=== PATIENT | male | born 2000 | race African-American/Black ===

== ENCOUNTER 2020-08-29 09:38 | Emergency (ER) | payer SELFPAY ==
--- NOTE | 2020-08-29 10:20 | EDPHYS ---
Physician Documentation [facility] Name: Peewee Preston Jr Age: 20 yrs Sex: Male : 2000 Arrival Date: 08/29/2020 Time: 09:41 Bed DIS5 Private MD: ED Physician Santiago Coker HPI: 08/29 10:18 This 20 yrs old Black Male presents to ER via Ambulatory with complaints of jr8 Vomiting/Diarrhea, Fever. 10:18 The patient presents to the emergency department with nausea, vomiting, diarrhea. jr8 Onset: The symptoms/episode began/occurred acutely, yesterday. Possible causes: sick contacts, by family. The symptoms are aggravated by nothing. The symptoms are alleviated by nothing. Associated signs and symptoms: Pertinent positives: fever. Severity of symptoms: At their worst the symptoms were mild in the emergency department the symptoms have improved. The patient has not experienced similar symptoms in the past. The patient has not recently seen a physician. Historical: - Allergies: 09:51 No Known Allergies; aa5 - PMHx: 09:51 None; aa5 - Immunization history:: Flu vaccine is not up to date. - Social history:: Smoking status: Patient denies any tobacco usage or history of. ROS: 10:18 Eyes: Negative for injury, pain, redness, and discharge, ENT: Negative for injury, jr8 pain, and discharge, Neck: Negative for injury, pain, and swelling, Cardiovascular: Negative for chest pain, palpitations, and edema, Respiratory: Negative for shortness of breath, cough, wheezing, and pleuritic chest pain, Back: Negative for injury and pain, MS/Extremity: Negative for injury and deformity, Skin: Negative for injury, rash, and discoloration, Neuro: Negative for headache, weakness, numbness, tingling, and seizure. 10:18 Constitutional: Positive for fever. 10:18 Abdomen/GI: Positive for nausea, vomiting, and diarrhea, abdominal cramps. Exam: 10:18 Eyes: Pupils equal round and reactive to light, extra-ocular motions intact. Lids and jr8 lashes normal. Conjunctiva and sclera are non-icteric and not injected. Cornea within normal limits. Periorbital areas with no swelling, redness, or edema. ENT: Nares patent. No nasal discharge, no septal abnormalities noted. Tympanic membranes are normal and external auditory canals are clear. Oropharynx with no redness, swelling, or masses, exudates, or evidence of obstruction, uvula midline. Mucous membranes moist. Neck: Trachea midline, no thyromegaly or masses palpated, and no cervical lymphadenopathy. Supple, full range of motion without nuchal rigidity, or vertebral point tenderness. No Meningismus. Cardiovascular: Regular rate and rhythm with a normal S1 and S2. No gallops, murmurs, or rubs. Normal PMI, no JVD. No pulse deficits. Respiratory: Lungs have equal breath sounds bilaterally, clear to auscultation and percussion. No rales, rhonchi or wheezes noted. No increased work of breathing, no retractions or nasal flaring. Abdomen/GI: Soft, non-tender, with normal bowel sounds. No distension or tympany. No guarding or rebound. No evidence of tenderness throughout. Back: No spinal tenderness. No costovertebral tenderness. Full range of motion. Skin: Warm, dry with normal turgor. Normal color with no rashes, no lesions, and no evidence of cellulitis. MS/ Extremity: Pulses equal, no cyanosis. Neurovascular intact. Full, normal range of motion. Neuro: Awake and alert, GCS 15, oriented to person, place, time, and situation. Cranial nerves II-XII grossly intact. Motor strength 5/5 in all extremities. Sensory grossly intact. Cerebellar exam normal. Normal gait. Vital Signs: 09:51 BP 105 / 88; Pulse 84; Resp 16 S; Temp 97.2(TE); Pulse Ox 100% on R/A; aa5 MDM: 10:12 Patient medically screened. jr8 10:18 Data reviewed: vital signs, nurses notes, and as a result, I will discharge patient. jr8 Data interpreted: Pulse oximetry: on room air is 100 %. Interpretation: normal. Counseling: I had a detailed discussion with the patient and/or guardian regarding: the historical points, exam findings, and any diagnostic results supporting the discharge/admit diagnosis, the need for outpatient follow up, a family practitioner, to return to the emergency department if symptoms worsen or persist or if there are any questions or concerns that arise at home. Administered Medications: No medications were administered Disposition: 11:30 Co-signature as Attending Physician, Santiago Coker MD. rn Disposition: 08/29/20 10:20 Discharged to Home. Impression: Acute Gastroenteritis. - Condition is Stable. - Discharge Instructions: Viral Gastroenteritis, Adult. - Prescriptions for Bentyl 20 mg Oral Tablet - take 1 tablet by ORAL route every 6 hours As needed; 20 tablet. Zofran 4 mg Oral Tablet - take 1 tablet by ORAL route every 12 hours As needed; 20 tablet. - Work release form, Medication Reconciliation Form, Thank You Letter, Antibiotic Education, Prescription Opioid Use form. - Follow up: Private Physician; When: As needed; Reason: Recheck today's complaints, Continuance of care, Re-evaluation by your physician. - Problem is new. - Symptoms have improved. Signatures: Santiago Coker MD MD rn Mary Ann Mederos RN RN aa5 Colt Morillo PA PA jr8 Corrections: (The following items were deleted from the chart) 10:50 10:20 08/29/2020 10:20 Discharged to Home. Impression: Acute Gastroenteritis. Condition aa5 is Stable. Forms are Medication Reconciliation Form, Thank You Letter, Antibiotic Education, Prescription Opioid Use. Follow up: Private Physician; When: As needed; Reason: Recheck today's complaints, Continuance of care, Re-evaluation by your physician. Problem is new. Symptoms have improved. jr8
--- NOTE | 2020-08-29 10:20 | ER ---
Nurse's Notes [facility] Name: Peewee Preston Jr Age: 20 yrs Sex: Male : 2000 Arrival Date: 08/29/2020 Time: 09:41 Bed DIS5 Private MD: Diagnosis: Acute Gastroenteritis Presentation: 08/29 09:51 Chief complaint: Patient states: vomiting, diarrhea, subjective fever that began aa5 yesterday. 09:51 Coronavirus screen: diarrhea, vomiting. Ebola Screen: Patient negative for fever aa5 greater than or equal to 101.5 degrees Fahrenheit, and additional compatible Ebola Virus Disease symptoms. Initial Sepsis Screen: Does the patient meet any 2 criteria? No. Patient's initial sepsis screen is negative. Does the patient have a suspected source of infection? Yes:. Risk Assessment: Do you want to hurt yourself or someone else? Patient reports no desire to harm self or others. Onset of symptoms was August 2020. 09:51 Acuity: BENIGNO 5 aa5 09:51 Method Of Arrival: Ambulatory aa5 Historical: - Allergies: 09:51 No Known Allergies; aa5 - PMHx: 09:51 None; aa5 - Immunization history:: Flu vaccine is not up to date. - Social history:: Smoking status: Patient denies any tobacco usage or history of. Screenin:00 Abuse screen: Denies threats or abuse. Nutritional screening: No deficits noted. aa5 Tuberculosis screening: No symptoms or risk factors identified. Fall Risk None identified. Assessment: 09:51 General: Appears comfortable, Behavior is calm, cooperative. Pain: Denies pain. Neuro: aa5 Level of Consciousness is awake, alert, obeys commands, Oriented to person, place, time, situation. Cardiovascular: Patient's skin is warm and dry. Respiratory: Airway is patent Respiratory effort is even, unlabored, Respiratory pattern is regular, symmetrical. GI: Abdomen is round non-distended, Abd is soft and non tender X 4 quads. Reports diarrhea, nausea, vomiting. : No signs and/or symptoms were reported regarding the genitourinary system. EENT: No signs and/or symptoms were reported regarding the EENT system. Derm: Skin is dry, Skin is normal, Skin temperature is warm. Musculoskeletal: Range of motion: intact in all extremities. Vital Signs: 09:51 BP 105 / 88; Pulse 84; Resp 16 S; Temp 97.2(TE); Pulse Ox 100% on R/A; aa5 ED Course: 09:41 Patient arrived in ED. as 09:51 Arm band placed on Patient placed in an exam room, on a stretcher. aa5 09:51 Patient has correct armband on for positive identification. Bed in low position. aa5 09:57 [facility] jr8 09:57 Santiago Coker MD is Attending Physician. jr8 10:02 Triage completed. aa5 10:11 Mary Ann Mederos, RN is Primary Nurse. aa5 10:45 No provider procedures requiring assistance completed. Patient did not have IV access aa5 during this emergency room visit. Administered Medications: No medications were administered Outcome: 10:20 Discharge ordered by . jr8 10:45 Discharged to home ambulatory. aa5 10:45 Condition: stable 10:45 Discharge instructions given to patient, Instructed on discharge instructions, follow up and referral plans. medication usage, Demonstrated understanding of instructions, follow-up care, medications, Prescriptions given X 2. 10:50 Patient left the ED. aa5 Signatures: Almaz Weldon as Mary Ann Mederos, RN RN aa5 Colt Morillo PA PA jr
[2020-08-29 11:02] VITALS: BP 105/88; TEMP 97.2; O2SAT 100
== END 2020-08-29 10:50 | disposition home or self-care (01) ==
LOC: ER 09:38
DX: K52.9 Noninfective gastroenteritis and colitis, unspecified (principal)
CPT/HCPCS: 99282

== ENCOUNTER 2021-03-19 10:26 | Emergency (ER) | payer SELFPAY ==
[2021-03-19 11:31] LABS: Absolute Lymphocytes (CBC) 1.4 K/uL (0.7-4.9); Basophils % 0.3 % (0-1.3); Hematocrit 45.7 % (39.6-49.0); Lymphocytes % 15.2 % (15.3-44.8); MPV 7.6 fL (7.6-11.3); RBC Red Blood Cell Count 5.24 M/uL (4.33-5.43)
[2021-03-19 11:39] LABS: ALT/SGPT 21 U/L (12-78); AST/SGOT 19 U/L (15-37); Albumin 3.5 g/dL (3.4-5.0); Alkaline Phosphatase 50 U/L (45-117); BUN Blood Urea Nitrogen 10 mg/dL (7-18); Bicarbonate 30 mmol/L (21-32); Bilirubin Direct 0.2 mg/dL (0-0.2); Bilirubin Total 0.5 mg/dL (0.2-1.0); Glucose Level 87 mg/dL (74-106); Lipase 69 U/L (73-393); Potassium 3.7 mmol/L (3.5-5.1); Protein, Total 7.2 g/dL (6.4-8.2); Sodium Level 142 mmol/L (136-145)
--- NOTE | 2021-03-19 12:00 | ER ---
Nurse's Notes [facility] Name: Peewee Preston Jr Age: 20 yrs Sex: Male : 2000 Arrival Date: 03/19/2021 Time: 10:29 Bed 5 Private MD: Diagnosis: Abdominal pain, Generalized;Localized edema-Lower lip Presentation: 03/19 10:49 Chief complaint: Patient states: RUQ and RLQ pain x2 days, states sharp pain. Denies vg1 NVD. States last BM was yesterday but hard and denies any urinary symptoms. Also states lower bottom lip swelling. Coronavirus screen: Vaccine status: Patient reports being unvaccinated. Client denies travel out of the [place] in the last 14 days. Ebola Screen: Patient negative for fever greater than or equal to 101.5 degrees Fahrenheit, and additional compatible Ebola Virus Disease symptoms. Initial Sepsis Screen: Does the patient meet any 2 criteria? No. Patient's initial sepsis screen is negative. Does the patient have a suspected source of infection? No. Patient's initial sepsis screen is negative. Risk Assessment: Do you want to hurt yourself or someone else? Patient reports no desire to harm self or others. Onset of symptoms was March 17, 2021. 10:49 Method Of Arrival: Ambulatory vg1 10:49 Acuity: BENIGNO 3 vg1 Triage Assessment: 10:51 General: Appears in no apparent distress. uncomfortable, Behavior is calm, cooperative. vg1 Pain: Complains of pain in right upper quadrant and right lower quadrant Pain currently is 7 out of 10 on a pain scale. GI: Abdomen is flat, Last BM was March 18, 2021. Patient currently denies diarrhea, nausea, vomiting. Historical: - Allergies: 10:51 No Known Allergies; vg1 - Home Meds: 10:51 None [Active]; vg1 - PMHx: 10:51 None; vg1 - PSHx: 10:51 None; vg1 - Immunization history:: Adult Immunizations unknown, Client reports having NOT received the Covid vaccine. - Social history:: Smoking status: Patient denies any tobacco usage or history of. Screenin:23 Abuse screen: Denies threats or abuse. Nutritional screening: No deficits noted. jh6 Tuberculosis screening: No symptoms or risk factors identified. Fall Risk None identified. Assessment: 11:19 General: Appears in no apparent distress. comfortable, slender, well groomed, well jh6 developed, well nourished. Pain: Complains of pain in right upper quadrant and right lower quadrant Pain does not radiate. Pain currently is 3 out of 10 on a pain scale. at worst was 6 out of 10 on a pain scale. level that patient reports is acceptable is 0 out of 10 on a pain scale. Quality of pain is described as sharp, shooting, Pain began 2-3 days ago. Is intermittent, Alleviated by nothing. Aggravated by increased activity. GI: Bowel sounds present X 4 quads. Abd is soft Abdomen is tender to palpation in right upper quadrant and right lower quadrant Reports lower abdominal pain. 12:30 Reassessment: Patient and/or family updated on plan of care and expected duration. Pain jh6 level reassessed. Patient denies pain at this time. 13:40 Reassessment: No changes from previously documented assessment. [facility] Vital Signs: 10:49 BP 124 / 71; Pulse 80; Resp 14; Temp 98.7; Pulse Ox 100% ; Weight 56.7 kg; Height 5 ft. vg1 6 in. (167.64 cm); Pain 7/10; 11:24 BP 112 / 60; Pulse 67; Resp 17; Pulse Ox 99% on R/A; jh6 12:30 BP 122 / 64; Pulse 70; Resp 16; Pulse Ox 97% on R/A; jh6 13:37 BP 118 / 64; Pulse 62; Resp 18; Temp 98.4(O); Pulse Ox 99% ; jh6 10:49 Body Mass Index 20.18 (56.70 kg, 167.64 cm) 1 ED Course: 10:29 Patient arrived in ED. mr 10:50 Patient has correct armband on for positive identification. Bed in low position. Call [facility] light in reach. Side rails up X 1. 10:51 Triage completed. vg1 10:51 Arm band placed on. vg1 10:57 Mayra Howard is Primary Nurse. jh6 11:04 Colt Morillo PA is PHCP. jr8 11:04 Yumiko Remy MD is Attending Physician. jr8 11:15 Initial lab(s) drawn, by me, sent to lab. jh6 11:22 No provider procedures requiring assistance completed. Inserted saline lock: 20 gauge jh6 in right antecubital area, using aseptic technique. 11:23 Pulse ox on. NIBP on. Door closed. Noise minimized. Lights dimmed. 6 13:39 IV discontinued, intact, bleeding controlled, No redness/swelling at site. Pressure jh6 dressing applied. Administered Medications: No medications were administered Outcome: 11:59 Discharge ordered by . jericho 13:40 Discharged to home ambulatory. 6 13:40 Condition: improved 13:40 Discharge instructions given to patient, Instructed on discharge instructions, medication usage, Demonstrated understanding of instructions, medications, Prescriptions given X 1. 13:42 Patient left the ED. 6 Signatures: Elena Coombs Josh, PA PA jr8 Dennise Cleveland, RN RN vg1 Mayra Howard, RN RN jh6 Corrections: (The following items were deleted from the chart) 10:52 10:51 Home Meds: Unable to obtain; vg1 vg1
--- NOTE | 2021-03-19 12:00 | EDPHYS ---
Physician Documentation [facility] Name: Peewee Preston Jr Age: 20 yrs Sex: Male : 2000 Arrival Date: 03/19/2021 Time: 10:29 Bed 5 Private MD: ED Physician Yumiko Remy HPI: 03/19 11:54 This 20 yrs old Black Male presents to ER via Ambulatory with complaints of Abdominal jr8 Pain, Mouth Swelling. 11:54 Severity of pain: At its worst the pain was mild in the emergency department the pain jr8 is unchanged. The patient has not experienced similar symptoms in the past. The patient has not recently seen a physician. This is a 20-year-old male patient that presented to the emergency room with complaints of lower lip swelling that started yesterday. Denies trauma or new medications or supplements. Patient stated that he is also had persistent lower to mid abdominal pain has been going on for some time that will be intermittent in nature. Currently without abdominal pain or any other signs and symptoms such as nausea, vomiting, diarrhea.. Historical: - Allergies: 10:51 No Known Allergies; vg1 - Home Meds: 10:51 None [Active]; vg1 - PMHx: 10:51 None; vg1 - PSHx: 10:51 None; vg1 - Immunization history:: Adult Immunizations unknown, Client reports having NOT received the Covid vaccine. - Social history:: Smoking status: Patient denies any tobacco usage or history of. ROS: 11:54 Eyes: Negative for injury, pain, redness, and discharge, Neck: Negative for injury, jr8 pain, and swelling, Cardiovascular: Negative for chest pain, palpitations, and edema, Respiratory: Negative for shortness of breath, cough, wheezing, and pleuritic chest pain, Back: Negative for injury and pain, MS/Extremity: Negative for injury and deformity, Skin: Negative for injury, rash, and discoloration, Neuro: Negative for headache, weakness, numbness, tingling, and seizure. 11:54 ENT: Positive for Lip swelling. 11:54 Abdomen/GI: Positive for abdominal pain, Negative for nausea, vomiting, and diarrhea. Exam: 11:54 Constitutional: This is a well developed, well nourished patient who is awake, alert, jr8 and in no acute distress. Head/Face: Normocephalic, atraumatic. Eyes: Pupils equal round and reactive to light, extra-ocular motions intact. Lids and lashes normal. Conjunctiva and sclera are non-icteric and not injected. Cornea within normal limits. Periorbital areas with no swelling, redness, or edema. Neck: Trachea midline, no thyromegaly or masses palpated, and no cervical lymphadenopathy. Supple, full range of motion without nuchal rigidity, or vertebral point tenderness. No Meningismus. Cardiovascular: Regular rate and rhythm with a normal S1 and S2. No gallops, murmurs, or rubs. Normal PMI, no JVD. No pulse deficits. Respiratory: Lungs have equal breath sounds bilaterally, clear to auscultation and percussion. No rales, rhonchi or wheezes noted. No increased work of breathing, no retractions or nasal flaring. Abdomen/GI: Soft, non-tender, with normal bowel sounds. No distension or tympany. No guarding or rebound. No evidence of tenderness throughout. Back: No spinal tenderness. No costovertebral tenderness. Full range of motion. Skin: Warm, dry with normal turgor. Normal color with no rashes, no lesions, and no evidence of cellulitis. MS/ Extremity: Pulses equal, no cyanosis. Neurovascular intact. Full, normal range of motion. Neuro: Awake and alert, GCS 15, oriented to person, place, time, and situation. Cranial nerves II-XII grossly intact. Motor strength 5/5 in all extremities. Sensory grossly intact. Cerebellar exam normal. Normal gait. 11:54 ENT: Exam is negative for earache, ear discharge, TM abnormalities, nasal discharge, sinus tenderness, enlarged tonsils, pharyngitis, Mouth: Lips: moist, Mild edema to the lower lip noted. No mucositis or other lesions noted to the inner mouth or lips., Posterior pharynx: Airway: patent, Tonsils: are normal in appearance, Uvula: midline. Vital Signs: 10:49 BP 124 / 71; Pulse 80; Resp 14; Temp 98.7; Pulse Ox 100% ; Weight 56.7 kg; Height 5 ft. vg1 6 in. (167.64 cm); Pain 7/10; 11:24 BP 112 / 60; Pulse 67; Resp 17; Pulse Ox 99% on R/A; 6 12:30 BP 122 / 64; Pulse 70; Resp 16; Pulse Ox 97% on R/A; 6 13:37 BP 118 / 64; Pulse 62; Resp 18; Temp 98.4(O); Pulse Ox 99% ; jh6 10:49 Body Mass Index 20.18 (56.70 kg, 167.64 cm) vg1 MDM: 11:04 Patient medically screened. [facility] 11:54 Data reviewed: vital signs, nurses notes, lab test result(s), and as a result, I will jr8 discharge patient. Data interpreted: Pulse oximetry: on room air is 99 %. Interpretation: normal. Counseling: I had a detailed discussion with the patient and/or guardian regarding: the historical points, exam findings, and any diagnostic results supporting the discharge/admit diagnosis, lab results, the need for outpatient follow up, a family practitioner, a tube [employer] airplane, to return to the emergency department if symptoms worsen or persist or if there are any questions or concerns that arise at home. ED course: Patient currently hemodynamically stable and afebrile. No abdominal tenderness upon examination. Labs unremarkable. Patient did have lower lip swelling noted but without any other signs or symptoms. Will put patient on steroids and have him closely monitor to ensure that it is not turning to angioedema for whatever reason. Still cannot identify source or cause for the lower lip swelling. Patient understands that he needs to closely observe this and come back immediately if he were to worsen at any point time. Patient will also follow-up with PCP for intermittent abdominal pain.. 03/19 11:05 Order name: Basic Metabolic Panel; Complete Time: 8 03/19 11:05 Order name: CBC with Diff; Complete Time: 8 03/19 11:05 Order name: Hepatic Function; Complete Time: 8 03/19 11:05 Order name: Lipase; Complete Time: 8 03/19 11:05 Order name: IV Saline Lock; Complete Time: 11:8 03/19 11:05 Order name: Labs collected and sent; Complete Time: : Administered Medications: No medications were administered Disposition Summary: 03/19/21 11:59 Discharge Ordered Location: Home [facility] Problem: new jr8 Symptoms: have improved jr8 Condition: Stable jr8 Diagnosis - Abdominal pain, Generalized jr8 - Localized edema - Lower lip jr8 Followup: jr8 - With: Private Physician - When: 2 - 3 days - Reason: Recheck today's complaints, Continuance of care, Re-evaluation by your physician Discharge Instructions: - Discharge Summary Sheet jr8 - Abdominal Pain, Adult jr8 - Edema jr8 - Angioedema jr8 Forms: - Medication Reconciliation Form jr8 - Thank You Letter jr8 - Antibiotic Education jr8 - Prescription Opioid Use jr8 - Work release form jh6 Prescriptions: - Prednisone 20 mg Oral Tablet - take 1 tablet by ORAL route once daily for 5 days; 5 tablet; Refills: 0, jr8 Product Selection Permitted Addendum: 03/24/2021 05:29 Co-signature as Attending Physician, Yumiko Remy MD PA/HISTOLOGIC TECHNICIAN's history reviewed, m a2 patient interviewed, and examined. I agree with assessment and care plan and confirm the diagnosis (es) above. Signatures: Dispatcher [employer] EDMS Colt Morillo PA PA jr8 Yumiko Remy MD MD ma2 Dennise Cleveland RN RN vg1 Corrections: (The following items were deleted from the chart) 03/19 10:52 10:51 Home Meds: Unable to obtain; vg1 vg1
[2021-03-19 14:27] VITALS: BP 118/64; TEMP 98.4; O2SAT 99
== END 2021-03-19 13:42 | disposition home or self-care (01) ==
LOC: ER 10:26
DX: R10.84 Generalized abdominal pain (principal); R60.9 Edema, unspecified
CPT/HCPCS: 36415; 80048; 80076; 83690; 85025; 99284

== ENCOUNTER 2021-09-11 17:33 | Emergency (ER) | payer SELFPAY ==
[2021-09-11] MEDS ORDERED: AZITHROMYCIN 250 MG TAB ONE (18:02)
[2021-09-11] MEDS ORDERED: CEFTRIAXONE 500 MG/VIAL ONE (18:02)
[2021-09-11] MEDS ORDERED: LIDOCAINE 1% MPF 5 ML VIAL ONE (18:02)
[2021-09-11 18:10] LABS: Urine Blood Trace-intact (Negative); Urine Glucose Negative (Negative); Urine Protein Negative (Negative); Urine Specific Gravity >=1.030 (1.005-1.030); Urine pH 6.5 (5.0-7.0)
--- NOTE | 2021-09-11 18:14 | ER ---
Nurse's Notes [facility] Name: Peewee Preston Jr Age: 21 yrs Sex: Male : 2000 Arrival Date: 09/11/2021 Time: 17:35 Bed 11 Private MD: Diagnosis: Unspecified sexually transmitted disease Presentation: 09/11 17:54 Chief complaint: Patient states: penile discharge since yesterday. Coronavirus screen: iw At this time, the client does not indicate any symptoms associated with coronavirus-19. Ebola Screen: Patient negative for fever greater than or equal to 101.5 degrees Fahrenheit, and additional compatible Ebola Virus Disease symptoms Patient denies exposure to infectious person. Patient denies travel to an Ebola-affected area in the 21 days before illness onset. No symptoms or risks identified at this time. Initial Sepsis Screen: Does the patient meet any 2 criteria? No. Patient's initial sepsis screen is negative. Does the patient have a suspected source of infection? No. Patient's initial sepsis screen is negative. Risk Assessment: Do you want to hurt yourself or someone else? Patient reports no desire to harm self or others. Onset of symptoms was September 10, 2021. 17:54 Method Of Arrival: Ambulatory iw 17:54 Acuity: BENIGNO 4 iw Historical: - Allergies: 17:55 No Known Allergies; iw - Home Meds: 17:55 None [Active]; iw - PMHx: 17:55 None; iw Vital Signs: 17:54 BP 128 / 89; Pulse 64; Resp 16; Temp 98.0; Pulse Ox 100% on R/A; iw ED Course: 17:35 Patient arrived in ED. am2 17:41 Mayra Martin FNP [facility]. jh7 17:41 Rl Waite MD is Attending Physician. 7 17:54 Zoya Talley, RN is Primary Nurse. iw 17:55 Triage completed. iw 17:55 Arm band placed on. iw Administered Medications: 18:08 Drug: Rocephin (cefTRIAXone) 500 mg Route: IM; Site: left deltoid; iw 18:08 Drug: AZITHromycin 1 grams Route: PO; iw Outcome: 18:14 Discharge ordered by . [facility] 18:32 Patient left the ED. iw Signatures: Mayank, ZoyaBRANDY paz RN, Amanda am2 Mayra Martin, BAGGER MEAT BAGGER MEAT jh7 Corrections: (The following items were deleted from the chart) 17:55 17:55 Allergies: Aspirin; brenna ceja
--- NOTE | 2021-09-11 18:15 | EDPHYS ---
Physician Documentation [facility] Name: Peewee Preston Jr Age: 21 yrs Sex: Male : 2000 Arrival Date: 09/11/2021 Time: 17:35 Bed 11 Private MD: AYSE Physician Rl Waite HPI: 09/11 19:02 This 21 yrs old Black Male presents to ER via Ambulatory with complaints of Penile jh7 Discharge. 19:02 The patient presents with a known STD exposure, symptoms include yellow penile jh7 discharge. Onset: The symptoms/episode began/occurred yesterday. Patient reports exposure to an STD 4 days ago. Reports milky white penile discharge since yesterday with mild dysuria.. Historical: - Allergies: 17:55 No Known Allergies; iw - Home Meds: 17:55 None [Active]; iw - PMHx: 17:55 None; iw ROS: 19:02 Constitutional: Negative for fever, chills, and weight loss, Cardiovascular: Negative jh7 for chest pain, palpitations, and edema, Respiratory: Negative for shortness of breath, cough, wheezing, and pleuritic chest pain, Skin: Negative for injury, rash, and discoloration, Neuro: Negative for headache, weakness, numbness, tingling, and seizure. 19:02 : Positive for burning with urination, penile discharge, Negative for injury or acute deformity, flank pain, difficulty urinating, penile pain, testicular pain Exam: 19:02 Constitutional: This is a well developed, well nourished patient who is awake, alert, jh7 and in no acute distress. Cardiovascular: Regular rate and rhythm with a normal S1 and S2. No gallops, murmurs, or rubs. Normal PMI, no JVD. No pulse deficits. Respiratory: Lungs have equal breath sounds bilaterally, clear to auscultation and percussion. No rales, rhonchi or wheezes noted. No increased work of breathing, no retractions or nasal flaring. Abdomen/GI: Soft, non-tender, with normal bowel sounds. No distension or tympany. No guarding or rebound. No evidence of tenderness throughout. Male : Normal genitalia with no discharge or lesions. Skin: Warm, dry with normal turgor. Normal color with no rashes, no lesions, and no evidence of cellulitis. Vital Signs: 17:54 BP 128 / 89; Pulse 64; Resp 16; Temp 98.0; Pulse Ox 100% on R/A; iw MDM: 17:43 Patient medically screened. [facility] 18:10 ED course: Patient was stable throughout the ER visit. He was treated for gonorrhea and jh7 chlamydia in the ER. He will follow-up with his PCP for additional lab work if needed. He was advised to abstain from sexual activity for the next 7 days. He will return to the ER if he experiences any new concerning symptoms. The patient understands the plan of care.. 18:10 Differential diagnosis: urethritis, STD. Data reviewed: vital signs, nurses notes. Data [facility] interpreted: Pulse oximetry: is 100 %. Interpretation: normal. Counseling: I had a detailed discussion with the patient and/or guardian regarding: the historical points, exam findings, and any diagnostic results supporting the discharge/admit diagnosis. 09/11 18:10 Order name: Urine Dipstick-Ancillary; Complete Time: 19:07 EDMS Administered Medications: 18:08 Drug: Rocephin (cefTRIAXone) 500 mg Route: IM; Site: left deltoid; iw 18:08 Drug: AZITHromycin 1 grams Route: PO; Disposition Summary: 09/11/21 18:14 Discharge Ordered Location: Home [facility] Problem: new [facility] Symptoms: are unchanged [facility] Condition: Stable [facility] Diagnosis - Unspecified sexually transmitted disease [facility] Followup: [facility] - With: Private Physician - When: 2 - 3 days - Reason: Recheck today's complaints Discharge Instructions: - Discharge Summary Sheet [facility] - Safe Sex [facility] - Preventing Sexually Transmitted Infections, Adult [facility] Forms: - Medication Reconciliation Form [facility] - Thank You Letter [facility] Signatures: Zoya Talley, RN RN iw Mayra Martin FNP FNP [facility] Corrections: (The following items were deleted from the chart) 17:55 17:55 Allergies: Aspirin; [facility] 19:09 19:02 ED course: Patient was stable throughout the ER visit. He was treated for jh7 gonorrhea and chlamydia in the ER. He will follow-up with his PCP for additional lab work if needed. He was advised to abstain from sexual activity for the next 7 days. He will return to the ER if he experiences any new concerning symptoms. The patient understands the plan of care.. jh7
[2021-09-11 18:59] VITALS: BP 128/89; TEMP 98; O2SAT 100
== END 2021-09-11 18:32 | disposition home or self-care (01) ==
LOC: ER 17:33
DX: A64 Unspecified sexually transmitted disease (principal)
CPT/HCPCS: 81003; 96372; 99282; J0696

== ENCOUNTER 2021-12-19 12:49 | Emergency (ER) | payer SELFPAY ==
--- NOTE | 2021-12-19 15:17 | ER ---
Nurse's Notes [facility] Name: Peewee Preston Jr Age: 21 yrs Sex: Male : 2000 Arrival Date: 12/19/2021 Time: 12:51 Bed 11 Private MD: Diagnosis: SARS-associated coronavirus as the cause of diseases classified elsewhere Presentation: 12/19 13:26 Chief complaint: Patient states: Runny nose, cough, fore throat x 2 days, denies fever. jl7 Coronavirus screen: Vaccine status: Patient reports receiving the 2nd dose of the covid vaccine. cough unrelated to allergies, runny nose, Client presents with at least one sign or symptom that may indicate coronavirus-19. Standard/surgical mask placed on the client. Ebola Screen: No symptoms or risks identified at this time. Initial Sepsis Screen: Does the patient meet any 2 criteria? No. Patient's initial sepsis screen is negative. Does the patient have a suspected source of infection? No. Patient's initial sepsis screen is negative. Risk Assessment: Do you want to hurt yourself or someone else? Patient reports no desire to harm self or others. Onset of symptoms was December 17, 2021. 13:26 Method Of Arrival: Ambulatory [facility] 13:26 Acuity: BENIGNO 4 jl7 Triage Assessment: 13:28 General: Appears in no apparent distress. uncomfortable, Behavior is calm, cooperative, jl7 appropriate for age. Pain: Denies pain. Historical: - Allergies: 13:28 No Known Allergies; jl7 - Home Meds: 13:28 None [Active]; jl7 - PMHx: 13:28 None; jl7 - PSHx: 13:28 None; jl7 - Immunization history:: Client reports receiving the 2nd dose of the Covid vaccine. - Social history:: Smoking status: Patient denies any tobacco usage or history of. Screenin:41 Abuse screen: Denies threats or abuse. Denies injuries from another. Nutritional ss screening: No deficits noted. Tuberculosis screening: Never had TB. Fall Risk None identified. Assessment: 13:29 Reassessment: ERP in triage assessing pt and discussing POC. jl7 15:41 Reassessment: Patient appears in no apparent distress at this time. Patient and/or ss family updated on plan of care and expected duration. Pain level reassessed. Patient is alert, oriented x 3, equal unlabored respirations, skin warm/dry/pink. Vital Signs: 13:26 BP 121 / 83; Pulse 58; Resp 17; Pulse Ox 100% ; Weight 56.7 kg; Height 5 ft. 7 in. jl7 (170.18 cm); Pain 0/10; 13:26 Body Mass Index 19.58 (56.70 kg, 170.18 cm) 7 ED Course: 12:51 Patient arrived in ED. mr 13:16 Rl White PA is PHCP. cp 13:16 Dariusz Flowers MD is Attending Physician. cp 13:28 Triage completed. 7 13:28 Arm band placed on right wrist. [facility] 13:29 COVID swab sent to lab. Flu and/or RSV swab sent to lab. Strep swab sent to lab. [facility] 13:55 COVID-19 SARS RT PCR (Document "Date of Onset" if Symptomatic) Sent. [facility] 13:55 Strep Sent. [facility] 13:55 Influenza Screen (a \\T\\ B) Sent. [facility] 15:41 Pat Riley, RN is Primary Nurse. ss 15:41 Patient has correct armband on for positive identification. Bed in low position. Call ss light in reach. 15:41 No provider procedures requiring assistance completed. Patient did not have IV access ss during this emergency room visit. Administered Medications: No medications were administered Medication: 15:41 VIS not applicable for this client. ss Outcome: 15:16 Discharge ordered by MD. cp 15:41 Discharged to home ambulatory. ss 15:41 Condition: good 15:41 Discharge instructions given to patient, Instructed on discharge instructions, follow up and referral plans. medication usage, Demonstrated understanding of instructions, follow-up care, medications, Prescriptions given X 2. 15:42 Patient left the ED. ss Signatures: Elena Coobms mr Pat Riley, RN RN ss Rl White PA PA cp Leal, Jahala, RN RN 7 Fide Bran RN RN 5 Corrections: (The following items were deleted from the chart) : 13:28 Home Meds: Unable to obtain; [place] [id number]
--- NOTE | 2021-12-19 15:17 | EDPHYS ---
Physician Documentation [facility] Name: Peewee Preston Jr Age: 21 yrs Sex: Male : 2000 Arrival Date: 12/19/2021 Time: 12:51 Bed 11 Private MD: ED Physician Dariusz Flowers HPI: 12/19 13:28 This 21 yrs old Black Male presents to ER via Ambulatory with complaints of Runny Nose, cp Cough. 13:28 The patient or guardian reports cough, that is intermittent, with no sputum. Onset: The cp symptoms/episode began/occurred 2 day(s) ago. Associated signs and symptoms: Pertinent positives: sore throat, Pertinent negatives: diarrhea, ear ache, fever, vomiting. Historical: - Allergies: 13:28 No Known Allergies; jl7 - Home Meds: 13:28 None [Active]; jl7 - PMHx: 13:28 None; jl7 - PSHx: 13:28 None; jl7 - Immunization history:: Client reports receiving the 2nd dose of the Covid vaccine. - Social history:: Smoking status: Patient denies any tobacco usage or history of. ROS: 13:35 Eyes: Negative for injury, pain, redness, and discharge. cp 13:35 Constitutional: Negative for body aches, chills, fever, poor PO intake. 13:35 ENT: Positive for rhinorrhea, sore throat, Negative for drainage from ear(s), ear pain, difficulty swallowing, difficulty handling secretions. 13:35 Respiratory: Positive for cough, with no reported sputum, Negative for shortness of breath, wheezing. 13:35 Abdomen/GI: Negative for vomiting, diarrhea, constipation. 13:35 Neuro: Negative for headache. Exam: 13:40 Constitutional: The patient appears in no acute distress, alert, awake, non-toxic, well cp developed, well nourished. 13:40 Head/Face: Normocephalic, atraumatic. cp 13:40 Eyes: Periorbital structures: appear normal, Conjunctiva: normal, no exudate, no injection, Lids and lashes: appear normal, bilaterally. 13:40 ENT: External ear(s): are unremarkable, Nose: is normal, Mouth: Lips: moist, Oral mucosa: pink and intact, moist, Posterior pharynx: Airway: no evidence of obstruction, patent, Tonsils: with erythema, no enlargement, no exudate, Uvula: midline, erythema, that is moderate, exudate, is not appreciated. 13:40 Neck: ROM/movement: is normal, is supple, without pain, no range of motions limitations, no meningismus. 13:40 Chest/axilla: Inspection: normal. 13:40 Cardiovascular: Rate: bradycardic, Rhythm: regular. 13:40 Respiratory: the patient does not display signs of respiratory distress, Respirations: normal, no use of accessory muscles, no retractions, labored breathing, is not present, Breath sounds: decreased breath sounds, are not appreciated, stridor, is not appreciated, + upper airway congestion. wheezing: is not appreciated. 13:40 Abdomen/GI: Exam negative for discomfort, distension, guarding, Inspection: abdomen appears normal. Vital Signs: 13:26 BP 121 / 83; Pulse 58; Resp 17; Pulse Ox 100% ; Weight 56.7 kg; Height 5 ft. 7 in. jl7 (170.18 cm); Pain 0/10; 13:26 Body Mass Index 19.58 (56.70 kg, 170.18 cm) jl7 MDM: 13:54 Patient medically screened. cp 14:00 Differential Diagnosis: Bronchitis Influenza Sinusitis Pharyngitis Otitis Media Viral cp Syndrome Pneumonia Other strep throat. 15:15 Data reviewed: vital signs, nurses notes, lab test result(s). cp 15:15 Counseling: I had a detailed discussion with the patient and/or guardian regarding: the cp historical points, exam findings, and any diagnostic results supporting the discharge/admit diagnosis, lab results, to return to the emergency department if symptoms worsen or persist or if there are any questions or concerns that arise at home. ED course: VSS. Patient appears non-toxic and no signs of respiratory distress. Will discharge to home for continued monitoring. 12/19 13:29 Order name: COVID-19 SARS RT PCR (Document "Date of Onset" if Symptomatic); Complete cp Time: 14:43 12/19 14:43 Interpretation: Reviewed. cp 12/19 13:29 Order name: Strep; Complete Time: 14:43 cp 12/19 13:29 Order name: Influenza Screen (a \\T\\ B); Complete Time: 14:43 cp 12/19 14:15 Order name: Throat Culture EDPA Administered Medications: No medications were administered Disposition: 16:45 Attestation: The patient's history, exam findings, diagnostics, and a summary of any [facility] interventions or procedures was reviewed in detail with Rl ALLEN. Disposition Summary: 12/19/21 15:16 Discharge Ordered Location: Home cp Problem: new cp Symptoms: are unchanged cp Condition: Stable cp Diagnosis - SARS-associated coronavirus as the cause of diseases classified elsewhere cp Followup: cp - With: Private Physician - When: 2 - 3 days - Reason: Worsening of condition Discharge Instructions: - Discharge Summary Sheet cp - COVID-19 cp - Things to Know about the COVID-19 Pandemic - [facility] cp - 10 Things You Can Do to Manage Your COVID-19 Symptoms at Home - [facility] cp - COVID-19: Quarantine vs. Isolation - [facility] cp - Prevent the Spread of COVID-19 if You Are Sick - [facility] cp Forms: - Medication Reconciliation Form cp - Thank You Letter cp - Antibiotic Education cp - Prescription Opioid Use cp - Work release form eb Prescriptions: - Ibuprofen 600 mg Oral Tablet - take 1 tablet by ORAL route every 8 hours As needed take with food; 30 tablet; cp Refills: 0, Product Selection Permitted - Tessalon Perles 100 mg Oral Capsule - take 1 capsule by ORAL route every 8 hours As needed; 15 capsule; Refills: 0, cp Product Selection Permitted Signatures: Dispatcher [employer] EDPA Rl White PA PA cp Emmanuel Quintero RN RN jlDariusz Butler MD MD [id number] Corrections: (The following items were deleted from the chart) 13:29 13:28 Home Meds: Unable to obtain; [facility]
[2021-12-19 15:59] VITALS: BP 121/83; O2SAT 100
== END 2021-12-19 15:42 | disposition home or self-care (01) ==
LOC: ER 12:49
DX: U07.1 COVID-19 (principal)
CPT/HCPCS: 87070; 87081; 87804; 99283; U0003

== ENCOUNTER 2022-01-26 11:01 | Emergency (ER) | payer SELFPAY ==
[2022-01-26 13:30] LABS: Absolute Lymphocytes (CBC) 1.7 K/uL (0.7-4.9); Hematocrit 46.7 % (39.6-49.0); Lymphocytes % 20.5 % (15.3-44.8); MCV 85.2 fL (80-100); MPV 8.5 fL (7.6-11.3); RBC Red Blood Cell Count 5.48 M/uL (4.33-5.43)
[2022-01-26 14:02] LABS: Albumin 4.3 g/dL (3.4-5.0); Bilirubin Total 0.7 mg/dL (0.2-1.0); Protein, Total 8.6 g/dL (6.4-8.2)
[2022-01-26 14:04] LABS: Potassium 3.9 mmol/L (3.5-5.1)
--- NOTE | 2022-01-26 14:33 | EDPHYS ---
Physician Documentation [facility] Name: Peewee Preston Jr Age: 21 yrs Sex: Male : 2000 Arrival Date: 01/26/2022 Time: 11:04 Bed 26 Private MD: ED Physician Mirtha Layton HPI: 01/26 11:40 This 21 yrs old Black Male presents to ER via Ambulatory with complaints of Abdominal jh7 Pain, Headache. 11:40 The patient presents with abdominal pain in the periumbilical area. Onset: The jh7 symptoms/episode began/occurred 2 day(s) ago. Associated signs and symptoms: Pertinent positives: headache, nausea, Pertinent negatives: constipation, diarrhea, dysuria, fever, vomiting. The symptoms are described as dull. Historical: - Allergies: 11:38 No Known Allergies; ph - PMHx: 11:38 None; ph - Immunization history:: Adult Immunizations unknown. - Social history:: Smoking status: Patient denies any tobacco usage or history of. ROS: 11:40 Constitutional: Negative for fever, chills, and weight loss, ENT: Negative for injury, jh7 pain, and discharge, Neck: Negative for injury, pain, and swelling, Cardiovascular: Negative for chest pain, palpitations, and edema, Respiratory: Negative for shortness of breath, cough, wheezing, and pleuritic chest pain, Back: Negative for injury and pain, MS/Extremity: Negative for injury and deformity, Skin: Negative for injury, rash, and discoloration. 11:40 Abdomen/GI: Positive for abdominal pain, nausea, Negative for vomiting, diarrhea, constipation, rectal bleeding. 11:40 Neuro: Positive for headache, Negative for altered mental status, dizziness, syncope, weakness. 11:40 All other systems are negative. Exam: 11:40 Constitutional: This is a well developed, well nourished patient who is awake, alert, jh7 and in no acute distress. Head/Face: Normocephalic, atraumatic. ENT: Nares patent. No nasal discharge, no septal abnormalities noted. Tympanic membranes are normal and external auditory canals are clear. Oropharynx with no redness, swelling, or masses, exudates, or evidence of obstruction, uvula midline. Mucous membranes moist. Cardiovascular: Regular rate and rhythm with a normal S1 and S2. No gallops, murmurs, or rubs. Normal PMI, no JVD. No pulse deficits. Respiratory: Lungs have equal breath sounds bilaterally, clear to auscultation and percussion. No rales, rhonchi or wheezes noted. No increased work of breathing, no retractions or nasal flaring. Back: No spinal tenderness. No costovertebral tenderness. Full range of motion. Skin: Warm, dry with normal turgor. Normal color with no rashes, no lesions, and no evidence of cellulitis. MS/ Extremity: Pulses equal, no cyanosis. Neurovascular intact. Full, normal range of motion. Neuro: Awake and alert, GCS 15, oriented to person, place, time, and situation. Motor strength 5/5 in all extremities. Sensory grossly intact. Normal gait. 11:40 Abdomen/GI: Inspection: abdomen appears normal, Bowel sounds: normal, Palpation: abdomen is soft and non-tender. Vital Signs: 11:37 BP 113 / 69; Pulse 64; Resp 18; Temp 98.2; Pulse Ox 100% on R/A; Weight 56.7 kg; Height ph 5 ft. 6 in. (167.64 cm); 14:04 BP 123 / 77; Pulse 48; Resp 16; Pulse Ox 99% on R/A; Pain 0/10; hb 11:37 Body Mass Index 20.18 (56.70 kg, 167.64 cm) ph MDM: 11:18 Patient medically screened. [facility] 14:12 Differential diagnosis: gastritis, non-specific abd pain, Viral infection. Data [facility] reviewed: vital signs, nurses notes, lab test result(s). Data interpreted: Pulse oximetry: is 99 %. Interpretation: normal. Counseling: I had a detailed discussion with the patient and/or guardian regarding: the historical points, exam findings, and any diagnostic results supporting the discharge/admit diagnosis, to return to the emergency department if symptoms worsen or persist or if there are any questions or concerns that arise at home. 01/26 11:25 Order name: CBC with Diff [facility] 01/26 11:25 Order name: CMP; Complete Time: 14:11 [facility] 01/26 11:25 Order name: Lipase; Complete Time: 14:11 [facility] 01/26 11:25 Order name: COVID-19 SARS RT PCR (Document "Date of Onset" if Symptomatic); Complete [facility] Time: 12:51 01/26 11:25 Order name: IV Saline Lock; Complete Time: 13:12 jh7 01/26 11:25 Order name: Labs collected and sent; Complete Time: 13:12 7 Administered Medications: 13:12 Drug: NS 0.9% 1000 ml Route: IV; Rate: 1 bolus; Site: right antecubital; hb 13:12 Drug: Pepcid (famotidine) 20 mg Route: IVP; Site: right antecubital; hb 13:12 Drug: Zofran (Ondansetron) 4 mg Route: IVP; Site: right antecubital; hb Disposition: 18:42 STAFF ATTESTATION STATEMENT: I was immediately available onsite in the emergency sd2 department for consultation in the care of this patient. I did not see or examine this patient. Mirtha Layton MD. Disposition Summary: 01/26/22 14:32 Discharge Ordered Location: Home [facility] Problem: new [facility] Symptoms: have improved [facility] Condition: Stable [facility] Diagnosis - Abdominal pain, Generalized [facility] Followup: [facility] - With: Private Physician - When: 2 - 3 days - Reason: Recheck today's complaints Discharge Instructions: - Discharge Summary Sheet [facility] - Abdominal Pain, Adult [facility] - Achondroplasia [facility] Forms: - Medication Reconciliation Form [facility] - Work release form bd - Thank You Letter [facility] Prescriptions: - ondansetron 4 mg Oral tablet,disintegrating - place 1 tablet by TRANSLINGUAL route 4 times per day As needed; 20 tablet; [facility] Refills: 0, Product Selection Permitted Signatures: Dispatcher [employer] Divine Garcia, RN RN Tomeka Don, RN RN Mayra Martin, BACTERIOLOGIST FISHERY BACTERIOLOGIST FISHERY [facility] Mirtha Layton MD MD sd2
--- NOTE | 2022-01-26 14:33 | ER ---
Nurse's Notes [facility] Name: Peewee Preston Jr Age: 21 yrs Sex: Male : 2000 Arrival Date: 01/26/2022 Time: 11:04 Bed 26 Private MD: Diagnosis: Abdominal pain, Generalized Presentation: 01/26 11:37 Chief complaint: Patient states: Headache and abdominal pain in umbilical region x 2 ph days, denies N/V/D or fever. Coronavirus screen: Vaccine status: Patient reports receiving the 1st dose of the Covid vaccine. Ebola Screen: No symptoms or risks identified at this time. Initial Sepsis Screen: Does the patient meet any 2 criteria? No. Patient's initial sepsis screen is negative. Does the patient have a suspected source of infection? No. Patient's initial sepsis screen is negative. Risk Assessment: Do you want to hurt yourself or someone else? Patient reports no desire to harm self or others. Onset of symptoms was January 26, 2022. 11:37 Method Of Arrival: Ambulatory ph 11:37 Acuity: BENIGNO 4 ph 13:13 Acuity: BENIGNO 3 hb Historical: - Allergies: 11:38 No Known Allergies; ph - PMHx: 11:38 None; ph - Immunization history:: Adult Immunizations unknown. - Social history:: Smoking status: Patient denies any tobacco usage or history of. Screenin:46 Abuse screen: Denies threats or abuse. Denies injuries from another. Nutritional hb screening: No deficits noted. Tuberculosis screening: No symptoms or risk factors identified. Fall Risk None identified. Assessment: 12:30 General: Appears in no apparent distress. Behavior is calm, cooperative. Pain: Pain hb currently is 4 out of 10 on a pain scale. Neuro: Level of Consciousness is awake, alert, obeys commands, Oriented to person, place, time, situation. Cardiovascular: Patient's skin is warm and dry. Respiratory: Respiratory effort is even, unlabored, Respiratory pattern is regular, symmetrical. GI: Reports upper abdominal pain, nausea. : No signs and/or symptoms were reported regarding the genitourinary system. EENT: No signs and/or symptoms were reported regarding the EENT system. Derm: Skin is pink, warm \T\ dry. Musculoskeletal: No signs and/or symptoms reported regarding the musculoskeletal system. 14:07 Reassessment: Patient appears in no apparent distress at this time. Patient and/or hb family updated on plan of care and expected duration. Pain level reassessed. Patient is alert, oriented x 3, equal unlabored respirations, skin warm/dry/pink. Vital Signs: 11:37 BP 113 / 69; Pulse 64; Resp 18; Temp 98.2; Pulse Ox 100% on R/A; Weight 56.7 kg; Height ph 5 ft. 6 in. (167.64 cm); 14:04 BP 123 / 77; Pulse 48; Resp 16; Pulse Ox 99% on R/A; Pain 0/10; hb 11:37 Body Mass Index 20.18 (56.70 kg, 167.64 cm) ph ED Course: 11:04 Patient arrived in ED. 4 11:17 [facility] 11:17 Mirtha Layton MD is Attending Physician. [facility] 11:38 Triage completed. ph 11:38 Arm band placed on Patient placed in an exam room. ph 13:02 Inserted saline lock: 20 gauge in right antecubital area, using aseptic technique. hb Blood collected. 13:12 Tomeka Don, RN is Primary Nurse. hb Administered Medications: 13:12 Drug: NS 0.9% 1000 ml Route: IV; Rate: 1 bolus; Site: right antecubital; hb 13:12 Drug: Pepcid (famotidine) 20 mg Route: IVP; Site: right antecubital; hb 13:12 Drug: Zofran (Ondansetron) 4 mg Route: IVP; Site: right antecubital; hb Outcome: 14:32 Discharge ordered by . [facility] 14:49 Patient left the ED. hb Signatures: Divine Love RN RN Tomeka Don, RN RN [place] 4 Mayra Martin FNP [place] [id number]
[2022-01-27 17:33] VITALS: BP 123/77; O2SAT 99
[2022-01-27 17:57] VITALS: TEMP 98.2
== END 2022-01-26 14:49 | disposition home or self-care (01) ==
LOC: ER 11:01
DX: R10.84 Generalized abdominal pain (principal); R51.9 Headache, unspecified; R11.0 Nausea
CPT/HCPCS: 36415; 80053; 83690; 85025; 96374; 96375; 99283; U0003